=== PATIENT | female | born 1985 | race Caucasian/White ===

== ENCOUNTER 2018-07-18 07:26 | Emergency (ER) | payer MEDICAID, OTHER ==
[~2018-07-18] VITALS: Ht 152.4 cm; Wt 73.0 kg
[2018-07-18 07:32] VITALS: BP 121/84
[2018-07-18] MEDS ORDERED: LIDOCAINE-MPF 1%, 5ML ONE (07:52)
[2018-07-18] MEDS ORDERED: LIDOCAINE-MPF 1%, 5ML INFIL ONE (08:00)
--- NOTE | 2018-07-18 08:04 | NUR ---
x-ray complete, set up for I&d.
--- NOTE | 2018-07-18 08:51 | NUR ---
Patient given discharge instructions and they have confirmed that they understand the instructions. Patient ambulatory with steady gait.
== END 2018-07-18 08:52 | disposition home or self-care (01) ==
LOC: ED 08:47
DX: L02.11 Cutaneous abscess of neck (principal); J00 Acute nasopharyngitis [common cold]
CPT/HCPCS: 10060; 71046; 99283

== ENCOUNTER 2018-07-20 07:47 | Emergency (ER) | payer SELFPAY ==
[~2018-07-20] VITALS: Ht 152.4 cm; Wt 73.0 kg
[2018-07-20 08:18] VITALS: BP 115/69
--- NOTE | 2018-07-20 08:54 | NUR ---
REPORT GIVEN TO FANI
--- NOTE | 2018-07-20 09:05 | NUR ---
Patient/Caregiver given discharge instructions and they have confirmed that they understand the instructions. Patient ambulatory with steady gait.
== END 2018-07-20 09:06 | disposition home or self-care (01) ==
LOC: ED 09:00
DX: L02.11 Cutaneous abscess of neck (principal); F17.200 Nicotine dependence, unspecified, uncomplicated
CPT/HCPCS: 99283